=== PATIENT | male | born 1960 | race Caucasian/White ===

== ENCOUNTER 2021-12-27 05:35 | Inpatient (IN) ==
[2021-12-27] MEDS ORDERED: ERTAPENEM 1,000 MG in SODIUM CHLORIDE 0.9% 100 ML IV ONE (06:00)
[2021-12-27] MEDS ORDERED: DIAZEPAM 5 MG TABLET PO ONE (06:27)
[2021-12-27] MEDS ORDERED: GABAPENTIN 400 MG CAPSULE PO ONE (06:27)
[2021-12-27] MEDS ORDERED: FAMOTIDINE 20 MG TABLET PO ONE (06:27)
[2021-12-27] MEDS ORDERED: ACETAMINOPHEN 500 MG TABLET PO ONE (06:27)
[2021-12-27] MEDS ORDERED: SUCCINYLCHOLINE 200 MG/10 ML VIAL ONE (06:29)
[2021-12-27] MEDS ORDERED: ROCURONIUM 50 MG/5 ML VIAL IV ONE (06:29)
[2021-12-27] MEDS ORDERED: propofoL 200 MG/20 ML VIAL IV ONE (06:29)
[2021-12-27] MEDS ORDERED: DEXAMETHASONE 4 MG/1 ML VIAL ONE (06:29)
[2021-12-27] MEDS ORDERED: LIDOCAINE 2% 5 ML VIAL ONE (06:29)
[2021-12-27] MEDS ORDERED: ONDANSETRON 4 MG/2 ML VIAL ONE (06:29)
[2021-12-27] MEDS ORDERED: fentaNYL 100 MCG/2 ML VIAL ONE ×2 (06:29→10:18)
[2021-12-27] MEDS ORDERED: MIDAZOLAM 2 MG/2 ML VIAL ONE (06:30)
[2021-12-27] MEDS ORDERED: LACTATED RINGERS 1,000 ML IV SCH (06:30)
[2021-12-27] MEDS ORDERED: LIDOCAINE 1% 5 ML VIAL ONE (06:34)
[2021-12-27] MEDS ORDERED: BUPIVACAINE MPF 0.25% 30 ML VIAL ONE (06:34)
[2021-12-27] MEDS ORDERED: TISSUE ADHESIVE 1 EACH APPLICATOR TOP ONE (06:41)
[2021-12-27] MEDS ORDERED: GLYCOPYRROLATE 0.4 MG/2 ML VIAL ONE ×2 (06:50→09:49)
[2021-12-27] MEDS ORDERED: INDOCYANINE GREEN 25 MG VIAL IV ONE (07:55)
[2021-12-27] MEDS ORDERED: ePHEDrine 50 MG/ML VIAL ONE (08:46)
[2021-12-27] MEDS ORDERED: PHENYLEPHRINE 1 MG/10 ML SYRINGE IV ONE (08:49)
[2021-12-27] MEDS ORDERED: ACETAMINOPHEN INJ 1,000 MG/100 ML VIAL IV ONE (09:12)
[2021-12-27] MEDS ORDERED: NEOSTIGMINE 10 MG/10 ML VIAL ONE (09:48)
[2021-12-27] MEDS ORDERED: DESFLURANE 1 UNIT/15 MINUTE INH ONE (09:53)
[2021-12-27 10:52] LABS: Amorphous Crystals,Urine Moderate /HPF (Few); Mucus,Urine Occasional /LPF (Occasional); Protein,Urine Negative (Negative); RBC,Urine 86 /HPF (0-4); Urine Appearance Slightly Cloudy (Clear); Urine Color Yellow (Yellow); Urine Specific Gravity 1.015 (1.001-1.035); Urine pH 8.5 (4.5-8.0)
[2021-12-27 10:53] LABS: Bilirubin,Urine Negative (Negative); Blood, Urine Moderate mg/dL (Negative); Glucose,Urine (UA) Negative (Negative); Ketones,Urine Negative (Negative); Nitrite,Urine Negative (Negative); Urine Urobilinogen 0.2 eU/dL (<2.0)
[2021-12-27] MEDS ORDERED: ONDANSETRON 4 MG/2 ML VIAL IV PRN ×2 (13:13)
[2021-12-27] MEDS ORDERED: ACETAMINOPHEN 325 MG TABLET PO PRN (13:13)
[2021-12-27] MEDS ORDERED: HYDROmorphone 1 MG/1 ML SYRINGE IV PRN (13:13)
[2021-12-27] MEDS ORDERED: ALBUTEROL/IPRATROPIUM 3 ML NEB RESP TX PRN (13:13)
[2021-12-27] MEDS ORDERED: KETOROLAC 15 MG/1 ML VIAL IV PRN (13:13)
[2021-12-27] MEDS: HYDROmorphone 1 MG/1 ML SYRINGE IV PRN ×3 (13:38→21:18)
[2021-12-27] MEDS: LACTATED RINGERS 1,000 ML IV SCH ×2 (13:38→21:57)
[2021-12-27] MEDS: ALVIMOPAN 12 MG CAPSULE PO SCH (21:12)
[2021-12-28] MEDS: HYDROmorphone 1 MG/1 ML SYRINGE IV PRN ×5 (05:32→23:26)
[2021-12-28 06:04] LABS: Basophils % 0.2 % (0.0-0.8); Eosinophils % 0.2 % (0.00-10.9); Hematocrit 39.1 VOL% (42.0-52.0); Hemoglobin 13.2 GM/DL (14.0-18.0); Immature Granulocytes % 0.5 %; Immature Granulocytes Absolute 0.04 #; Lymphocytes # 0.6 10*3/uL (1.4-4.0); Lymphocytes % 7.1 % (21.2-54.2); Mean Corpuscular HGB Conc 33.8 GM/DL (32-36); Mean Corpuscular Volume 96.1 FL (87-102); Monocytes # 0.9 10*3/uL (0.11-0.8); Monocytes % 11.1 % (1.7-12.7); Neutrophils % 80.9 % (38.7-73.9); Platelet Count 205 T/CUMM (130-400); Red Blood Count 4.07 MC/CUMM (3.8-5.5); Red Cell Distribution Width 14.5 % (9.3-17.3); White Blood Count 8.5 T/CUMM (4-12)
[2021-12-28 06:14] LABS: Calcium 8.2 MG/DL (8.5-10.1); Osmolality,Calculated 283.1 MOS/KG (273-304); Potassium 3.6 MMOL/L (3.5-5.1)
[2021-12-28] MEDS: LACTATED RINGERS 1,000 ML IV SCH ×3 (06:35→23:26)
[2021-12-28] MEDS: ALVIMOPAN 12 MG CAPSULE PO SCH ×2 (09:10→20:59)
[2021-12-28] MEDS: ENOXAPARIN 40 MG/0.4 ML SYRINGE SUBCUT SCH (09:11)
[2021-12-28] MEDS: PANTOPRAZOLE 40 MG VIAL IV SCH (09:11)
[2021-12-29] MEDS: HYDROmorphone 1 MG/1 ML SYRINGE IV PRN ×2 (03:11→07:43)
[2021-12-29] MEDS: LACTATED RINGERS 1,000 ML IV SCH (07:41)
[2021-12-29] MEDS: PANTOPRAZOLE 40 MG VIAL IV SCH ×2 (07:42→09:15)
[2021-12-29] MEDS: ENOXAPARIN 40 MG/0.4 ML SYRINGE SUBCUT SCH (07:42)
[2021-12-29] MEDS: ALVIMOPAN 12 MG CAPSULE PO SCH ×2 (07:43→09:15)
[2021-12-29 08:04] VITALS: BP 137/91
== END 2021-12-29 11:08 | disposition home or self-care (01) | DRG 330 ==
LOC: N.OR 05:35 → N.SDSINP 05:36 → N.3E 12:11
PROVIDERS: ADMIT Surgery; ATTEND Surgery